=== PATIENT | female | born 2000 | race African-American/Black ===

== ENCOUNTER 2024-01-12 17:04 | Inpatient (IN) | payer OTHER ==
[2024-01-12] MEDS: LORazepam 2 MG/ML SDV VIAL IVPUSH ONE (18:00)
[2024-01-12 18:06] LABS: BASO % 0.1 % (0-2.0); EOS % 0.6 % (0-4.5); HEMATOCRIT 38.4 % (32.4-45.2); HEMOGLOBIN 12.7 GM/dL (10.7-15.3); LYMPH % 16.5 % (8-40); MCH 27.8 pg (25.7-33.7); MEAN CELL VOLUME 84.3 fl (80-96); MEAN PLT VOLUME 9.5 fl (7.5-11.1); MONO % 2.4 % (3.8-10.2); NEUT % 80.4 % (42.8-82.8); PLATELET COUNT 273 10^3/uL (134-434); RBC 4.55 M/mm3 (3.60-5.2); RDW 12.9 % (11.6-15.6); WHITE BLOOD COUNT 14.5 K/mm3 (4.0-10.0)
[2024-01-12 18:24] LABS: INR 1.2 (0.83-1.09); PROTHROMBIN TIME (PATIENT) 13.7 SEC (9.7-13.0)
[2024-01-12 18:26] LABS: ACTIVATED PTT 28.1 SECONDS (25.2-36.5)
[2024-01-12] MEDS: SODIUM CHLORIDE 0.9% 500 ML INFUS.BAG IV ONE ×2 (18:31)
[2024-01-12] MEDS: ACETAMINOPHEN 1000 MG/100 ML BAG IVPB ONE (18:32)
[2024-01-12 18:35] LABS: POTASSIUM 3.7 mmol/L (3.5-5.1)
[2024-01-12 18:37] LABS: ALBUMIN 3.3 g/dl (3.4-5.0); CALCIUM 9.2 mg/dL (8.5-10.1)
[2024-01-12 18:38] LABS: BLOOD UREA NITROGEN 9.4 mg/dL (7-18)
[2024-01-12 18:41] LABS: CREATININE 0.8 mg/dL (0.55-1.3)
[2024-01-12 18:42] LABS: BILIRUBIN,TOTAL 0.4 mg/dL (0.2-1); TOT PROT 6.2 g/dl (6.4-8.2)
[2024-01-12] MEDS ORDERED: FAMOTIDINE 20 MG/50 ML IVPB 20 MG/50 ML MG IVPB ONE (18:57)
[2024-01-12] MEDS: FAMOTIDINE 20 MG/50 ML IVPB 20 MG/50 ML MG IVPB ONE (18:57)
[2024-01-12 19:00] LABS: LACTIC ACID 6.4 mmol/L (0.4-2.0)
[2024-01-12] MEDS ORDERED: levETIRAcetam 500 MG/5 ML INJECTION VIAL IVPB ONE (20:30)
[2024-01-12] MEDS: levETIRAcetam 500 MG/5 ML INJECTION VIAL IVPB ONE (20:33)
[2024-01-12 23:07] LABS: EPI CELLS 4 /uL (0-25.1); HYALINE CASTS 2 /uL (0-3.1); URINE APPEARANCE CLEAR; URINE BACTERIA 21 /uL (0-1359); URINE BILIRUBIN NEGATIVE (NEGATIVE); URINE COLOR YELLOW; URINE GLUCOSE (UA) NEGATIVE (NEGATIVE); URINE KETONE TRACE (NEGATIVE); URINE LEUK ESTERASE NEGATIVE (NEGATIVE); URINE NITRITE NEGATIVE (NEGATIVE); URINE PROTEIN 1+ (NEGATIVE); URINE RBC 10 /uL (0-23.9); URINE UROBILINOGEN 0.2 mg/dL (0.2-1.0); URINE WBC 9 /uL (0-25.8)
[2024-01-13] MEDS ORDERED: KETOROLAC TROMETHAMINE 15 MG/ML VIAL IM PRN (06:09)
[2024-01-13] MEDS: ACETAMINOPHEN 1000 MG/100 ML BAG IVPB ONE (06:25)
[2024-01-13] MEDS ORDERED: levETIRAcetam 500 MG/5 ML INJECTION VIAL IVPB ONE (08:58)
[2024-01-13] MEDS ORDERED: ENOXAPARIN NA (PORCINE) 40 MG/0.4 ML DISP.SYRIN SQ ONE (08:59)
[2024-01-13] MEDS ORDERED: propRANOLol HCL 10 MG TABLET ONE (08:59)
[2024-01-13] MEDS: propRANOLol HCL 10 MG TABLET PO SCH ×2 (09:16→21:52)
[2024-01-13] MEDS: LACTATED RINGERS SOLUTION 1,000 ML/1,000 ML INFUS.BAG IV SCH (09:16)
[2024-01-13] MEDS: levETIRAcetam 500 MG/5 ML INJECTION VIAL IVPB SCH (09:16)
[2024-01-13] MEDS: ENOXAPARIN NA (PORCINE) 40 MG/0.4 ML DISP.SYRIN SQ SCH (09:17)
[2024-01-13] MEDS: METHIMAZOLE 10 MG TABLET PO SCH ×2 (10:31→17:39)
[2024-01-13] MEDS: HYDROCORTISONE 2.5% TOPICAL CREAM 30 GM TUBE RC SCH (15:26)
[2024-01-13 17:24] VITALS: BMI 23.5
[2024-01-13 20:01] LABS: COCAINE, UR NEGATIVE (NEGATIVE); METHADONE, UR NEGATIVE (NEGATIVE); OPIATES, URI NEGATIVE (NEGATIVE); PHENCYCLIDINE,URINE NEGATIVE (NEGATIVE); URINE AMPHETAMINES NEGATIVE (NEGATIVE); URINE BARBITURATES NEGATIVE (NEGATIVE); URINE BENZODIAZEPINES NEGATIVE (NEGATIVE)
[2024-01-13] MEDS: METHIMAZOLE 5 MG TABLET PO SCH (21:52)
[2024-01-14] MEDS: levETIRAcetam 500 MG/5 ML INJECTION VIAL IVPB ONE ×2 (08:57→17:11)
[2024-01-14 09:08] LABS: HEMATOCRIT 33.3 % (32.4-45.2); HEMOGLOBIN 11.4 GM/dL (10.7-15.3); MCH 29.1 pg (25.7-33.7); MCHC 34.2 g/dl (32.0-36.0); MEAN CELL VOLUME 84.9 fl (80-96); MEAN PLT VOLUME 9.9 fl (7.5-11.1); PLATELET COUNT 223 10^3/uL (134-434); RBC 3.93 M/mm3 (3.60-5.2); RDW 12.8 % (11.6-15.6); WHITE BLOOD COUNT 14.4 K/mm3 (4.0-10.0)
[2024-01-14 09:15] LABS: POTASSIUM 3.3 mmol/L (3.5-5.1)
[2024-01-14 09:20] LABS: ALBUMIN 2.8 g/dl (3.4-5.0)
[2024-01-14 09:21] LABS: CALCIUM 8.3 mg/dL (8.5-10.1); MAGNESIUM 1.8 mg/dL (1.8-2.4)
[2024-01-14 09:22] LABS: BLOOD UREA NITROGEN 5.7 mg/dL (7-18)
[2024-01-14 09:23] LABS: CREATININE 0.4 mg/dL (0.55-1.3)
[2024-01-14 09:24] LABS: PHOSPHOROUS 2.9 mg/dL (2.5-4.9)
[2024-01-14 09:25] LABS: BILIRUBIN,TOTAL 0.5 mg/dL (0.2-1); TOT PROT 5.3 g/dl (6.4-8.2)
[2024-01-14 10:43] LABS: LACTIC ACID 4.4 mmol/L (0.4-2.0)
[2024-01-14 13:14] LABS: CHLORIDE 106 mmol/L (98-107); POTASSIUM 3.3 mmol/L (3.5-5.1); SODIUM 139 mmol/L (136-145)
[2024-01-14 13:16] LABS: ALBUMIN 2.6 g/dl (3.4-5.0); CALCIUM 8.2 mg/dL (8.5-10.1)
[2024-01-14 13:17] LABS: ANION GAP 8 mmol/L (4-13); BLOOD UREA NITROGEN 6.6 mg/dL (7-18); CO2 25 mmol/L (21-32); GLUCOSE,RANDOM 112 mg/dL (74-106)
[2024-01-14 13:20] LABS: CREATININE 0.5 mg/dL (0.55-1.3); SGOT/AST 5 U/L (15-37); SGPT/ALT 23 U/L (13-61)
[2024-01-14 13:21] LABS: BILIRUBIN,TOTAL 0.4 mg/dL (0.2-1)
[2024-01-14 13:22] LABS: ALK PHOS 38 U/L (45-117)
[2024-01-14] MEDS: LACTATED RINGERS SOLUTION 1000 ML INFUS.BAG IV ONE (14:57)
[2024-01-14] MEDS: SODIUM CHLORIDE 0.9% 1000 ML INFUS.BAG IV ONE (14:58)
[2024-01-14] MEDS: LACTATED RINGERS SOLUTION 1,000 ML/1,000 ML INFUS.BAG IV SCH (15:00)
[2024-01-14] MEDS: METHIMAZOLE 5 MG TABLET PO ONE (18:18)
[2024-01-14] MEDS: propRANOLol HCL 10 MG TABLET PO ONE (18:19)
[2024-01-14] MEDS: levETIRAcetam 500 MG/5 ML INJECTION VIAL IVPB SCH (21:46)
[2024-01-14] MEDS: DIVALPROEX NA *ER* EXTEND REL 250 MG TABLET.SA PO SCH (22:05)
[2024-01-14] MEDS: ACETAMINOPHEN 1000 MG/100 ML BAG IVPB PRN (22:13)
[2024-01-14] MEDS ORDERED: levETIRAcetam 500 MG TABLET (FP) PO SCH (22:15)
[2024-01-14] MEDS: levETIRAcetam 250 MG TABLET PO SCH (22:40)
[2024-01-15] MEDS: POTASSIUM CHLORIDE ORAL LIQUID 20 MEQ/15 ML PO ONE ×2 (00:38→03:40)
[2024-01-15 08:35] LABS: HEMATOCRIT 31.3 % (32.4-45.2); HEMOGLOBIN 10.4 GM/dL (10.7-15.3); MCH 28.2 pg (25.7-33.7); MCHC 33.4 g/dl (32.0-36.0); MEAN CELL VOLUME 84.5 fl (80-96); MEAN PLT VOLUME 9.2 fl (7.5-11.1); PLATELET COUNT 246 10^3/uL (134-434); RDW 12.8 % (11.6-15.6); WHITE BLOOD COUNT 7.9 K/mm3 (4.0-10.0)
[2024-01-15 08:54] LABS: POTASSIUM 3.7 mmol/L (3.5-5.1)
[2024-01-15 08:56] LABS: CALCIUM 8.3 mg/dL (8.5-10.1)
[2024-01-15 08:57] LABS: ALBUMIN 2.7 g/dl (3.4-5.0); MAGNESIUM 1.8 mg/dL (1.8-2.4)
[2024-01-15 08:59] LABS: CREATININE 0.3 mg/dL (0.55-1.3); PHOSPHOROUS 2.8 mg/dL (2.5-4.9)
[2024-01-15 09:00] LABS: BILIRUBIN,TOTAL 0.4 mg/dL (0.2-1)
[2024-01-15 09:01] LABS: TOT PROT 5.3 g/dl (6.4-8.2)
[2024-01-15] MEDS ORDERED: VALPROATE SODIUM 500 MG/5 ML VIAL IVPB ONE (09:39)
[2024-01-15] MEDS: levETIRAcetam 500 MG/5 ML INJECTION VIAL IVPB ONE (09:56)
[2024-01-15] MEDS ORDERED: VALPROATE SODIUM 500 MG/5 ML VIAL IVPB SCH (10:00)
[2024-01-15] MEDS: VALPROATE SODIUM INJECTION 250 MG in DEXTROSE 5%-WATER - 100 ML IVPB ONE (12:55)
[2024-01-15] MEDS: DIVALPROEX NA *ER* EXTEND REL 250 MG TABLET.SA PO SCH (13:43)
[2024-01-15] MEDS ORDERED: DIVALPROEX NA *ER* EXTEND REL 250 MG TABLET.SA PO SCH (22:00)
[2024-01-15] MEDS: HYDROCORTISONE SOD SUCCINATE 100 MG/2 ML VIAL IVPB SCH (22:49)
[2024-01-15] MEDS: diphenhydrAMINE HCL 25 MG CAPSULE (FP) PO ONE (22:53)
[2024-01-16] MEDS ORDERED: POTASSIUM IODIDE 1G/ML SSKI 30 ML DROPSBTL PO SCH (06:00)
[2024-01-16 08:36] LABS: BASO % 0.1 % (0-2.0); EOS % 0.3 % (0-4.5); HEMATOCRIT 32.5 % (32.4-45.2); HEMOGLOBIN 11.1 GM/dL (10.7-15.3); LYMPH % 18.6 % (8-40); MCH 28.7 pg (25.7-33.7); MCHC 34.2 g/dl (32.0-36.0); MEAN CELL VOLUME 83.8 fl (80-96); MEAN PLT VOLUME 9.6 fl (7.5-11.1); MONO % 1.8 % (3.8-10.2); NEUT % 79.2 % (42.8-82.8); PLATELET COUNT 281 10^3/uL (134-434); RBC 3.88 M/mm3 (3.60-5.2); RDW 12.8 % (11.6-15.6); WHITE BLOOD COUNT 6.1 K/mm3 (4.0-10.0)
[2024-01-16 08:50] LABS: POTASSIUM 4.3 mmol/L (3.5-5.1)
[2024-01-16 08:55] LABS: CALCIUM 8.8 mg/dL (8.5-10.1)
[2024-01-16 08:56] LABS: BLOOD UREA NITROGEN 5.4 mg/dL (7-18); MAGNESIUM 1.9 mg/dL (1.8-2.4)
[2024-01-16 08:58] LABS: CREATININE 0.4 mg/dL (0.55-1.3); PHOSPHOROUS 4.7 mg/dL (2.5-4.9)
[2024-01-16 09:00] LABS: BILIRUBIN,TOTAL 0.3 mg/dL (0.2-1); TOT PROT 5.9 g/dl (6.4-8.2)
[2024-01-16 13:07] LABS: HIV INTERPRETATION NEGATIVE (NEGATIVE)
[2024-01-16] MEDS ORDERED: METHIMAZOLE 5 MG TABLET PO SCH (16:31)
[2024-01-16] MEDS: METHIMAZOLE 10 MG TABLET PO SCH (21:24)
[2024-01-18 06:38] VITALS: TEMP 98.2
[2024-01-18 10:39] VITALS: BP 136/98; PULSE 63; RESP 14
== END 2024-01-18 14:23 | disposition home or self-care (01) | DRG 424 ==
LOC: JER 17:04 → JERBED 21:02 → J4W 01-13 15:56
PROVIDERS: ADMIT Student in an Organized Health Care Education/Training Program; ATTEND Internal Medicine
PROC: 4A10X4Z Monitoring of Central Nervous Electrical Activity, External Approach (ICD-10-PCS; principal; 2024-01-14)
DX: E05.90 Thyrotoxicosis, unspecified without thyrotoxic crisis or storm (principal); R56.9 Unspecified convulsions; E87.20 Acidosis, unspecified; R00.0 Tachycardia, unspecified; R50.9 Fever, unspecified; L30.9 Dermatitis, unspecified; F45.9 Somatoform disorder, unspecified
CPT/HCPCS: 0241U-QW; 36415; 70450-TC; 70551-TC; 70553-TC; 71045-TC-FY; 72147-TC; 72157-TC; 80053; 80177; 80307; 81003; 82550; 82962; 83605; 83735; 84100; 84146; 84436; 84439; 84443; 84445; 84484; 84703; 85025; 85027; 85610; 85730; 86850; 86900; 86901; 87040; 87086; 87389; 93005; 93010; 93306-TC; 95816; 99285-25; J0131